=== PATIENT | male | born 1935 | race Caucasian/White ===

== ENCOUNTER 2017-07-04 07:32 | Inpatient (IN) | payer OTHER ==
[2017-07-04] VITALS (13 sets, daily range): BP systolic 118–153; BP diastolic 53–76
[~2017-07-04] VITALS: Ht 182.9 cm; Wt 117.9 kg
[~2017-07-04 07:32] MED LIST: ALEVE220 MG PO; ASPIRIN325 PO; CENTRUM SILVER1 EAC2 PO; COQ-10100 MG PO; ELIQUIS2.5 MG PO; FLOMAX0.4 MG PO; HYDROCODONE-AP1 EAC6 PO; LISINOPRIL10 MG PO; PROTONIX40 M1 PO; TUMS PO; VITAMIN E400 UNIT PO; ZOCOR40 MG PO
[2017-07-04 08:04] LABS: HEMATOCRIT 47.5 % (42.0-52.0); HEMOGLOBIN 15.9 gm/dL (14.0-18.0); MCHC 33.4 g/dL (28.0-37.0); MCV 89.8 fL (80.0-100.0); MPV 8.2 fl. (7.2-11.1); RBC 5.29 mil/uL (4.50-6.00); WBC 6.4 thou/uL (4.0-11.0)
[2017-07-04 08:11] LABS: ANION GAP 9 mmol/L (7-16); BUN 22 mg/dL (7-18); CALCIUM 9.4 mg/dL (8.5-10.1); CHLORIDE 105 mmol/L (98-107); CO2 26 mmol/L (21-32); CREATININE 1.5 mg/dL (0.6-1.3); GLUCOSE 133 mg/dL (70-99); POTASSIUM 4.2 mmol/L (3.5-5.1); SODIUM 140 mmol/L (136-145)
[2017-07-04 08:15] LABS: ALBUMIN 3.6 g/dL (3.4-5.0); ALKALINE PHOSPHATASE 65 U/L (46-116); CHOLESTEROL 174 mg/dL (<200); HDL CHOLESTEROL 37 mg/dL (>40); LDL CHOLESTEROL 90 mg/dL (<100); SGOT 24 U/L (15-37); SGPT 33 U/L (30-65); TC:HDL 4.7 Ratio (Not establshd); TOTAL BILIRUBIN 0.8 mg/dL (<0.1-1.0); TOTAL PROTEIN 7.5 g/dL (6.4-8.2); TRIGLYCERIDE 239 mg/dL (<150); VLDL 48 mg/dL (<40)
[2017-07-04 08:19] LABS: SERUM ASSESSMENT Clear
--- NOTE | 2017-07-04 11:28 | EKG ---
[place] [address] ELECTROCARDIOGRAM REPORT Name: VIKTOR ORTEGA Room: [facility]#: [id number] Admission: 07/04/17 Attend Phys: Reji Zabala MD, F Discharge: Date of : 35 Report #: [id number] THIS REPORT FOR: //name// [facility] Test Date: 2017-07-04 Test Time: 07:45:44 Pat Name: VIKTOR ORTEGA Department: Room: Gender: Bulk Station Agent: : 1935 Requested By: Reji Zabala Order Number: [id number] Terry MD: Reji Zabala Measurements Intervals [place] Rate: 77 P: 14 [place]: 192 QRS: -18 QRSD: 115 T: 109 QT: 391 QTc: 443 Interpretive Statements Sinus rhythm Nonspecific intraventricular conduction delay Inferior infarct, old Lateral leads are also involved No previous ECG available for comparison Electronically Signed On 07-04-2017 11:27:54 MEDICAL RESEARCH TECH by Reji Zabala [email or web address] <ELECTRONICALLY SIGNED> By: Reji Zabala MD, [facility] 07/04/17 1127 0745 4 Reji Zabala MD, FACC /EPI
--- NOTE | 2017-07-04 16:27 | EKG ---
[place] [address] ELECTROCARDIOGRAM REPORT Name: QUETA ORTEGALISA Cummins Room: [place] [address] ADM IN [facility].#: [id number] Admission: 07/04/17 Attend Phys: Reji Zabala MD, F Discharge: Date of : 35 Report #: [id number] THIS REPORT FOR: //name// [facility] Test Date: 2017-07-04 Test Time: 12:42:04 Pat Name: VIKTOR ORTEGA Department: Room: [facility] Gender: Field Producer: 27 : 1935 Requested By: Reji Zabala Order Number: [id number] Reading MD: Reji Zabala Measurements Intervals [place] Rate: 62 P: 33 NM: 200 QRS: -14 QRSD: 115 T: 133 QT: 415 QTc: 422 Interpretive Statements Sinus rhythm Nonspecific intraventricular conduction delay Inferior infarct, old Lateral leads are also involved Compared to ECG 07/04/2017 07:45:44 No significant changes Electronically Signed On 07-04-2017 16:26:53 SENIOR STRUCTURAL ENGINEER by Reji Zabala [email or web address] <ELECTRONICALLY SIGNED> By: Reji Zabala MD, LOCATED [facility] 07/04/17 1626 1242 1242 Reji Zabala MD, [facility] /EPI
--- NOTE | 2017-07-04 18:46 | NUR ---
PT ARRIVED TO THE FLOOR FROM THE BYPRODUCT ENGINEER AT 1830. PT IS A&O X4 CALM AND COOPERATIVE. PT ORIENTED TO UNIT AND SERVICES. FOOD AND DRINK OFFERED. PT DENNIES ANY C/O PAIN OR DISTRESS. PT CURRENTLY RESTING IN BED WATCHING TV. NURSING WILL CONTINUE TO MONITOR.
[2017-07-05] VITALS: BP 158/62
[2017-07-05 04:00] VITALS: BP 122/61
--- NOTE | 2017-07-05 05:01 | NUR ---
ASSUMED CARE OF PT AT 1930, NURSING ASSESSMENT COMPLETED AT START OF SHIFT. PT VVS, DRESSING ON RIGHT WRIST CDI. PT DENIES CHEST PAIN THIS SHIFT, RESTING QUIETLY IN ROOM, PT ON TELE MONITOR, TRACING SINUS PRAVEEN/SINUS RHYTHM THIS SHIFT, HOURLY ROUNDING COMPLETED, CALL LIGHT WITHIN REACH.
[2017-07-05 05:35] LABS: ABSOLUTE BASOPHILS 0.1 thou/uL (0.0-0.2); ABSOLUTE EOSINOPHILS 0.1 thou/uL (0.0-0.7); ABSOLUTE LYMPHOCYTES 1.9 thou/uL (0.8-5.3); ABSOLUTE MONOCYTES 0.8 thou/uL (0.0-1.2); ABSOLUTE NEUTROPHILS 4.4 thou/uL (1.6-8.1); BASOPHILS 0.7 %; EOSINOPHILS 1.5 %; HEMATOCRIT 43.4 % (42.0-52.0); HEMOGLOBIN 14.4 gm/dL (14.0-18.0); LYMPHOCYTES 26.6 %; MCH 30.2 pg (26.0-34.0); MCHC 33.3 g/dL (28.0-37.0); MCV 90.5 fL (80.0-100.0); MPV 8.5 fl. (7.2-11.1); NUCLEATED RBCS 0 /100WBC; PLATELET COUNT* 139 thou/uL (150-400); POLYS 60.2 %; RBC 4.79 mil/uL (4.50-6.00); WBC 7.3 thou/uL (4.0-11.0)
[2017-07-05 08:10] VITALS: BP 134/64
[2017-07-05 08:40] VITALS: BP 134/64
[2017-07-05 09:11] VITALS: BP 134/64
[2017-07-05 09:59] VITALS: BP 134/64
[2017-07-05] MEDS ORDERED: PLAVIX 75 MG TA75 M1 PO (10:51)
[2017-07-05] MEDS ORDERED: NITROGLYCERIN0.4 MG SUBLING (10:52)
[2017-07-05] MEDS ORDERED: ASPIR 8181 MG PO (10:57)
--- NOTE | 2017-07-05 11:11 | NUR ---
ASSUMED CARE OF PT AT 0730. PT CONTINUES TO BE A&O X4 CALM AND COOPERATIVE. C/O PAIN EFFECTIVELY REDUCED TO A TOLERABLE LEVEL WITH PRN NORCO. PT VERBALIZED UNDERSTANDING OF DISCHARGE INSTRUCTIONS INCLUDING MEDICATION TEACHING. PT DISCHARGED HOME VIA PRIVATE VEHICLE ACCOMPANIED BY FAMILY. IV AND INSPECTOR GLASS OR MIRROR REMOVED, SCRIPTS GIVEN. PT VSS AND SKIN DRY, WARM, AND INTACT AT TIME OF DISCHARGE. ALL PERSONAL BELONGINGS TAKEN.
--- NOTE | 2017-07-05 17:30 | EKG ---
[place] [address] ELECTROCARDIOGRAM REPORT Name: QUETA ORTEGALISA Cummins Room: [address] DIS IN [facility].#: [id number] Admission: 07/04/17 Attend Phys: Reji Zabala MD, F Discharge: 07/05/17 Date of : 35 Report #: [id number] THIS REPORT FOR: //name// [facility] Test Date: 2017-07-05 Test Time: 07:40:07 Pat Name: VIKTOR ORTEGA Department: Room: [address] Gender: M B2B Outside Sales Representative: : 1935 Requested By: Reji Zabala Order Number: [id number] Terry MD: Parveen Power Measurements Intervals [place] Rate: 68 P: 35 [place]: 181 QRS: -34 QRSD: 112 T: 109 QT: 379 QTc: 404 Interpretive Statements Sinus rhythm Borderline IVCD with LAD Inferior infarct, old Lateral leads are also involved Compared to ECG 07/04/2017 12:42:04 No significant changes Electronically Signed On 07-05-2017 17:29:54 BRAKE TESTER by Parveen Power [email or web address] <ELECTRONICALLY SIGNED> By: Parveen Power MD, FACC 07/05/17 1729 0740 0740 Parveen Power MD, FAC /EPI
--- NOTE | 2017-07-05 19:34 | SHORT ---
[address] [address] SHORT STAY SUMMARY Name: JORDANVIKTOR J Room: [address] IN [place].#: [id number] Admission: 07/04/17 Attend Phys: Reji Zabala MD, F Discharge: 07/05/17 Date of : 35 Report #: [id number] THIS REPORT FOR: //name// CC: Reji Leos MD DATE OF SERVICE: 07/05/2017 DISCHARGE DIAGNOSES: 1. Crescendo angina. 2. Coronary artery disease. 3. Hyperlipidemia. 4. Hypertension. 5. Thromboembolic disease. CONSULTANTS: None. PROCEDURES: Left heart catheterization with placement of 2 drug-eluting stents in the right coronary artery via the radial approach. HISTORY OF PRESENT ILLNESS: The patient is an 82-year-old white male who was brought to the outpatient department to undergo repeat cardiac catheterization. The patient apparently had an acute inferior STEMI in 2000. He had a stent placed in his right coronary artery at [facility]. A month later, he had a stent placed in his LAD. He has done well since that time, although he is not very active because of his age. Previous Holter monitor apparently showed a brief episode of atrial fibrillation. 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 Recently, he is having frequent chest tightness with minimal exertion. I saw him in the cardiology clinic on June 26, and recommended he undergo repeat cardiac catheterization. PAST MEDICAL HISTORY: Otherwise significant for hypertension and hyperlipidemia. MEDICATIONS ON ADMISSION: Include Eliquis, which was stopped 2 days ago, one aspirin a day, Prinivil, simvastatin, and Flomax. ALLERGIES: He has no known drug allergies. PHYSICAL EXAMINATION: GENERAL: Revealed a large, elderly male. VITAL SIGNS: Blood pressure 140/70, pulse is 80. CHEST: Clear to auscultation. HEART: [place] [address] SHORT STAY SUMMARY Name: VIKTOR ORTEGA Room: [address]#: [id number] Admission: 07/04/17 Attend Phys: Reji Zabala MD, F Discharge: 07/05/17 Date of : 35 Report #: [id number] ABDOMEN: Soft, nontender. EXTREMITIES: Had no edema. His ECG showed sinus rhythm, nonspecific T-wave changes. HOSPITAL COURSE: The patient brought to the outpatient department. I performed cardiac catheterization from the right radial artery. Ventriculogram was not performed because of chronic kidney disease. LVEDP was 10 mmHg. The stent in the proximal LAD had no restenosis. There was an 80% narrowing of the distal LAD. The first diagonal branch was a small vessel and had an 80% stenosis. The circumflex had a 50% mid stenosis. The small marginal branch had a distal 80% stenosis. The right coronary had a mid 60% stenosis. At the acute margin of the vessel, there was a previous stent. There was what appeared to be a recent occlusion of the stent was only faint antegrade flow that filled by collaterals from the left coronary artery. I decided to proceed with attempts at reperfusion. The patient was given heparin and Aggrastat. I performed balloon angioplasty with reperfusion of the right coronary artery. I placed a drug-eluting stent in the right coronary artery. There appeared to be a dissection at the distal edge of the stent. I then placed a second drug-eluting stent. He tolerated this well. He was loaded with Plavix. Prior to discharge, had no further complaints. EKG showed no changes. He has had no further chest pain, arrhythmias or heart failure. At time of discharge, he had a blood pressure of 130/60, pulse 60. Lab work, sodium is 140, BUN 22, creatinine 1.5, glucose 133. Liver function studies were normal. Cholesterol 174, triglyceride 239, HDL 37, LDL 90. White blood cell count 7.3, hemoglobin 14.4. The patient was discharged on his home medications that included Eliquis, he has resumed 2.5 mg twice a day, aspirin 81 mg a day, lisinopril 10 mg a day, Protonix 40 mg a day. The patient could not tolerate Lipitor in the past. I have recommended increasing the Zocor to 80 mg a day. He was continued on Flomax 0.4 mg a day and he was started on Plavix 75 mg a day. He was discharged to return to care of Dr. Leos for routine medical care. I plan on seeing him in cardiology clinic in 6 weeks. His prognosis is guarded due to his diffuse coronary artery disease. The results were discussed with the patient and his . It appears he had a recent occlusion of the stent in the distal right coronary artery. He had diffuse coronary artery disease. Additional lab work following the procedure included a hemoglobin of 14.4. <ELECTRONICALLY SIGNED> By: Reji Zabala MD, FACC 07/05/17 [id number] 1903Djuni Zabala MD, FACC /nt
--- NOTE | 2017-07-06 13:49 | CARD ---
[address] [address] CARDIAC CATH REPORT Name: ORTEGAVIKTOR J Room: [address] [place] [id number] Admission: 07/04/17 Attend Phys: Reji Zabala MD, F Discharge: 07/05/17 Date of : 35 Report #: [id number] THIS REPORT FOR: //name// APPROVED REPORT Patient Details Patient Status: Out-Patient Room #: The patient is a 82 year-old male Procedures Performed cath pci Indication Unstable angina Risk Factors Arterial Hypertension, Hypercholesterolemia, Coronary Artery Disease Previous Procedures/Diagnoses Previous PCI Admission/Lab Medications/Medications given during procedure Heparin Low Molecular Weight, Platelet Aff. Inhib. Procedure Narrative The patient was brought electively to the Cardiac Catheterization Laboratory and was prepped and draped in a sterile manner. The right wrist was infiltrated with 1% Lidocaine subcutaneous anesthesia. A 6 fr sheath was inserted into the right radial vein. Coronary angiography was performed using coronary diagnostic catheters. The right coronary system was accessed and visualized with a Diagnostic catheter. The left coronary system was accessed and visualized with a Diagnostic catheter. Left ventricular/Aortic Valve gradient assessed via catheter pullback. The patient tolerated the procedure well and there were no complications associated with the procedure. There was no hematoma. Coronary Angiography The patient's coronary anatomy is right dominant. Diagnostic Cath Left Main 0% stenosis LAD Proximal stent without restenosis. Apical lad had 2 70% sequential stenosis [address] [place] [address] CARDIAC CATH REPORT Name: VIKTOR ORTEGA Maria G Room: [address] IN [place]#: [id number] Admission: 07/04/17 Attend Phys: Reji Zabala MD, F Discharge: 07/05/17 Date of : 35 Report #: [id number] Diagonal 1 80% stenosis Circumflex 50% mid stenosis OM1 80% mid stenosis Right Coronary 60% mid stenosis and a stent after the acute margin that appeared recently occluded Left Ventriculography Left Ventriculography was not performed. Hemodynamics There was no gradient across the aortic valve upon pullback. Pullback from the left ventricle to the aorta revealed no gradient across the aortic valve. PCI Technique Lesion Anticoagulation was achieved with Heparin. iv aggrastat was used Percutaneous coronary intervention was performed on the mid right coronary artery. The lesion stenosis prior to intervention was 100% with SHAINA 0 flow. A 6 fr jcr4 Guide Catheter was used to engage the rca ostium. A [facility] Interventional Guidewire was used to cross the lesion. BALLOON DILATION A Balloon catheter 2.5 x 8 mm was inserted and inflated up to 16atm for 15seconds. Repeat angiography revealed the following post-dilatation results: 50% stenosis. STENT DEPLOYMENT A drug-eluting stent was inserted and inflated up to 16atm for 10seconds. Repeat angiography revealed the following post-stent deployment results: distal dissection. a second drug eluting stent was placed distal to the first stent to cover the dissection Final angiography reveals 0 % stenosis with SHAINA 0 flow. Conclusion 1. Stent in proximal lad had no restenosis, but stent in the mid rca appeared to have recently occluded 2. diffuse cad with 70% stenosis of the apical lad, and 80% stenosis of a diagonal branch, and 80% stenosis of the first marginal branch 3. successful stenting of [place] [address] CARDIAC CATH REPORT Name: VIKTOR ORTEGA Room: [address] IN [facility].#: [id number] Admission: 07/04/17 Attend Phys: Reji Zabala MD, F Discharge: 07/05/17 Date of : 35 Report #: [id number] Recommendations Aggressive Medical Therapy <ELECTRONICALLY SIGNED> By: Reji Zabala MD, FACC 07/06/17 1349 1349 [id number] Zabala MD, FAC /INF
== END 2017-07-05 11:30 | disposition home or self-care (01) | DRG 247 ==
LOC: M.CL 07:32 → M.TBA-CV 11:29 → M.2W 18:31
PROVIDERS: ADMIT Internal Medicine Cardiovascular Disease
PROC: 027035Z Dilation of Coronary Artery, One Artery with Two Drug-eluting Intraluminal Devices, Percutaneous Approach (ICD-10-PCS; principal; 2017-07-04)
DX: I25.110 Atherosclerotic heart disease of native coronary artery with unstable angina pectoris (principal); I74.9 Embolism and thrombosis of unspecified artery; I12.9 Hypertensive chronic kidney disease with stage 1 through stage 4 chronic kidney disease, or unspecified chronic kidney disease; N18.3 Chronic kidney disease, stage 3 (moderate); E78.5 Hyperlipidemia, unspecified; I48.0 Paroxysmal atrial fibrillation; R00.1 Bradycardia, unspecified; I25.2 Old myocardial infarction; Z95.5 Presence of coronary angioplasty implant and graft; Z79.899 Other long term (current) drug therapy; Z86.718 Personal history of other venous thrombosis and embolism; Z79.01 Long term (current) use of anticoagulants

== ENCOUNTER 2018-02-23 15:34 | Emergency (ER) | payer OTHER ==
[~2018-02-23] VITALS: Ht 182.9 cm; Wt 71.3 kg
[~2018-02-23 15:34] MED LIST changes: +ASPIR 8181 MG PO; +NITROGLYCERIN0.4 MG SUBLING; +PLAVIX 75 MG TA75 M1 PO
[2018-02-23] MEDS ORDERED: CRESTOR20 MG PO (15:59)
[2018-02-23 16:35] LABS: ABSOLUTE BASOPHILS 0.1 thou/uL (0.0-0.2); ABSOLUTE EOSINOPHILS 0.1 thou/uL (0.0-0.7); ABSOLUTE MONOCYTES 0.7 thou/uL (0.0-1.2); ABSOLUTE NEUTROPHILS 3.5 thou/uL (1.6-8.1); BASOPHILS 1.4 %; EOSINOPHILS 1.8 %; HEMOGLOBIN 13.6 gm/dL (14.0-18.0); LYMPHOCYTES 31.1 %; MCH 29.5 pg (26.0-34.0); MCHC 33.2 g/dL (28.0-37.0); MCV 88.9 fL (80.0-100.0); MONOCYTES 11.6 %; MPV 8.1 fl. (7.2-11.1); NUCLEATED RBCS 0 /100WBC; PLATELET COUNT* 144 thou/uL (150-400); POLYS 54.1 %; RBC 4.61 mil/uL (4.50-6.00); RDW-CV 13.9 % (10.5-14.5); WBC 6.4 thou/uL (4.0-11.0)
[2018-02-23 16:41] LABS: ANION GAP 1 mmol/L (7-16); BUN 21 mg/dL (7-18); CALCIUM 8.6 mg/dL (8.5-10.1); CHLORIDE 103 mmol/L (98-107); CO2 27 mmol/L (21-32); CREATININE 1.3 mg/dL (0.6-1.3); GLUCOSE 131 mg/dL (70-99); POTASSIUM 4.1 mmol/L (3.5-5.1); SODIUM 131 mmol/L (136-145)
[2018-02-23 16:45] LABS: APTT 26.1 Seconds (25.0-31.3); INR 1.1; PROTIME 11.1 Seconds (9.20-11.50)
[2018-02-23 16:52] LABS: ALBUMIN 3.3 g/dL (3.4-5.0); ALKALINE PHOSPHATASE 64 U/L (46-116); LIPASE 188 U/L (73-393); NT-PRO BRAIN NAT PEPTIDE 120 pg/mL (<300); SGOT 19 U/L (15-37); SGPT 28 U/L (30-65); TOTAL BILIRUBIN 0.6 mg/dL (<0.1-1.0); TOTAL PROTEIN 6.9 g/dL (6.4-8.2)
[2018-02-23 17:06] LABS: TROPONIN-I LEVEL <0.06 ng/mL (<0.06)
[2018-02-23 18:33] VITALS: BP 149/68
--- NOTE | 2018-02-25 10:35 | EKG ---
[place] [address] ELECTROCARDIOGRAM REPORT Name: VIKTOR ORTEGA Room: [facility]#: [id number] Admission: 02/23/18 Attend Phys: Discharge: 02/23/18 Date of : 35 Report #: [id number] THIS REPORT FOR: //name// [facility] ED Test Date: 2018-02-23 Test Time: 16:33:43 Pat Name: VIKTOR ORTEGA Department: Room: Gender: M Recovery Assistant: : 1935 Requested By: Clari Pillai Order Number: [id number] MD: Bladimir Vázquez Measurements Intervals [place] Rate: 57 P: 30 [place]: 181 QRS: -21 QRSD: 111 T: 3 QT: 413 QTc: 402 Interpretive Statements Sinus rhythm Abnormal R-wave progression, early transition Left ventricular hypertrophy Compared to ECG 07/05/2017 07:40:07 Left ventricular hypertrophy now present Myocardial infarct finding no longer present Electronically Signed On 02-25-2018 10:34:53 CDT by Bladimir Vázquez [email or web address] <ELECTRONICALLY SIGNED> By: Bladimir Vázquez MD, [facility] 02/25/18 1034 1633 1633 Bladimir Vázquez MD, [facility] /EPI
== END 2018-02-23 18:37 | disposition home or self-care (01) ==
LOC: M.ERS 15:34
PROVIDERS: Personal Emergency Response Attendant
DX: R07.89 Other chest pain (principal); R06.02 Shortness of breath; I10 Essential (primary) hypertension; M19.90 Unspecified osteoarthritis, unspecified site; G62.9 Polyneuropathy, unspecified; Z85.828 Personal history of other malignant neoplasm of skin